=== PATIENT | male | born 1975 | race Caucasian/White ===

== ENCOUNTER 2018-02-24 19:02 | Inpatient (IN) | payer BC, OTHER ==
[2018-02-24 19:09] VITALS: BMI 24.3
--- NOTE | 2018-02-24 19:11 | PDOC ---
Rapid Medical Evaluation Time Seen by Provider: 02/24/18 19:05 Medical Evaluation: Allergies Allergy/AdvReac Type Severity Reaction Status Date / Time No Known Allergies Allergy Verified 02/24/18 19:05 02/24/18 19:06 Pt presents for admission for an MS flare for two weeks. States his knees are locking and he has numbness in the L side of his face. States he had dental surgery last week. Saw Dr. Hough today who would like the patient admitted for MRI and IV solumedrol Exam: AAOx3, no respiratory distress. Capped lower L tooth with possible pus? Orders: labs, EKG, urine Pt to proceed to ED for further evaluation Discharge Disposition - Diagnosis Numbness - Referrals - Patient Instructions - Post Discharge Activity
[2018-02-24 19:55] LABS: BASO % 0.8 % (0-2.0); EOS % 1.6 % (0-4.5); HEMATOCRIT 40.1 % (35.4-49); HEMOGLOBIN 13.5 GM/dL (11.7-16.9); LYMPH % 23.4 % (8-40); MCH 32.2 pg (25.7-33.7); MCHC 33.6 g/dl (32.0-35.9); MEAN CELL VOLUME 95.6 fl (80-96); MEAN PLT VOLUME 8.9 fl (7.5-11.1); MONO % 5.2 % (3.8-10.2); PLATELET COUNT 213 K/MM3 (134-434); RBC 4.19 M/mm3 (4.00-5.60); WHITE BLOOD COUNT 6.9 K/mm3 (4.0-10.0)
[2018-02-24 20:02] LABS: URINE APPEARANCE CLEAR; URINE BILIRUBIN NEGATIVE (<2.0 mg/dL); URINE COLOR YELLOW; URINE GLUCOSE (UA) NEGATIVE (NEGATIVE); URINE KETONE NEGATIVE (NEGATIVE); URINE LEUK ESTERASE NEGATIVE (NEGATIVE); URINE NITRITE NEGATIVE (NEGATIVE); URINE PROTEIN NEGATIVE (NEGATIVE)
[2018-02-24 20:16] LABS: ANION GAP 8 (8-16); BLOOD UREA NITROGEN 11 mg/dL (7-18); CALCIUM 9.1 mg/dL (8.5-10.1); CHLORIDE 107 mmol/L (98-107); CO2 28 mmol/L (21-32); GLUCOSE,RANDOM 85 mg/dL (74-106); POTASSIUM 3.7 mmol/L (3.5-5.1); SODIUM 143 mmol/L (136-145)
[2018-02-24 20:20] LABS: ALK PHOS 61 U/L (45-117); BILIRUBIN,TOTAL 0.5 mg/dL (0.2-1.0); CREATININE 0.9 mg/dL (0.7-1.3); SGOT/AST 24 U/L (15-37); SGPT/ALT 30 U/L (12-78); TOT PROT 6.8 g/dl (6.4-8.2)
--- NOTE | 2018-02-24 20:20 | PDOC ---
History of Present Illness - General Chief Complaint: Weakness Stated Complaint: PCP ADMIT Time Seen by Provider: 02/24/18 19:05 History Source: Patient - History of Present Illness Initial Comments: 02/24/18 20:15 42-year-old male with history of MS reports for greater than 1 week patient has been experiencing weakness, dysarthria, imbalance, with left-sided facial numbness. Patient reports that he has been off his MS medication for 5 years. Today was seen by Dr. Hough (neurology) who sent the patient for evaluation and admission for MS exacerbation. Patient reports that one week ago patient had left lower molar removed and cap was placed. Patient was put on amoxicillin and a mouthwash. Patient denies increased swelling to the left side of face, pus drainage, fever, chills. NIH Stroke Scale - Last Known Well Date/Time & Onset Date Last Known Well: 02/11/18 - Initial Evaluation Level of consciousness: Alert Ask patient the month and their age: Answers both correctly Ask patient to open & close eyes; make fist and let go: Obeys both correctly Best gaze (horizontal eye movement): Normal Visual field testing: No visual field loss Facial paresis (Show teeth/raise eyebrows/close eyes tight): Minor paralysis ( flattened nasolabial fold, asymmetry on smiling) (ower wrist) Motor Function: Left Arm: Normal Motor Function: Right Arm: Normal (extends arm 90 (or 45) degrees for 10 seconds without drift Motor Function: Left Leg: Normal (extends leg 30 degrees for 5 seconds without drift) Motor Function: Right Leg: Normal (extends leg 30 degrees for 5 seconds without drift) Limb Ataxia: No ataxia Sensory(Use pinprick test arms,legs,trunk,face/side to side): Mild to moderate decrease in sensation Best language (Describe picture, name items, read sentences): No Aphasia (30 this morn) Dysarthria (read several words): Mild to moderate slurring of words Extinction and Inattention: No abnormality (no past medic) - Total Score NIH Stroke Scale Score: 3 Past History - Past Medical History Allergies/Adverse Reactions: Allergies Allergy/AdvReac Type Severity Reaction Status Date / Time No Known Allergies Allergy Verified 02/24/18 19:05 COPD: No Other medical history: MULTIPLE SCLEROSIS - Suicide/Smoking/Psychosocial Hx Smoking History: Never smoked Review of Systems - Review of Systems Able to Perform ROS?: Yes Is the patient limited Sami proficient: No Constitutional: No: Symptoms Reported, See HPI, Chills, Diaphoresis, Fever, Loss of Appetite, Malaise, Night Sweats, Weakness, Weight Stable (he had 2 or), Unintentional Wgt. Loss, Unexplained wgt Loss, Other HEENTM: Yes: Dental Problems. No: Symptoms Reported, See HPI, Eye Pain, Blurred Vision, Tearing, Recent change in vision, Double Vision, Cataracts, Ear Pain, Ocular Prothesis, Ear Discharge, Nose Pain, Nose Congestion, Tinnitus, Nose Bleeding, Hearing Loss, Throat Pain, Throat Swelling, Mouth Pain, Difficulty Swallowing, Mouth Swelling, Other Neurological: Yes: Weakness, Unsteady Gait, Ataxia (() *Physical Exam - Vital Signs Last Vital Signs Temp Pulse Resp BP Pulse Ox 98.5 F 64 19 122/63 98 02/24/18 19:06 02/24/18 19:06 02/24/18 19:06 02/24/18 19:06 02/24/18 19:06 - Physical Exam General Appearance: Yes: Appropriately Dressed (ED) Respiratory/Chest: positive: Lungs Clear, Normal Breath Sounds Gastrointestinal/Abdominal: positive: Normal Bowel Sounds, Soft Musculoskeletal: positive: Normal Inspection Extremity: positive: Normal Capillary Refill, Normal Inspection, Normal Range of Motion Integumentary: positive: Normal Color, Dry, Warm Neurologic: positive: Alert, Normal Mood/Affect, Other (slight facial asymmetry) Heart Score/ECG Review - ECG Intrepretation Rhythm: Regular Rhythm Comment:: 02/24/18 20:31 NSR: 61 bpm ED Treatment Course - LABORATORY CBC & Chemistry Diagram: 02/25/18 09:20 02/25/18 09:20 - ADDITIONAL ORDERS Additional order review: 02/24/18 19:41 RBC 4.19 MCV 95.6 MCHC 33.6 RDW 13.0 MPV 8.9 Neutrophils % 69.0 Lymphocytes % 23.4 Monocytes % 5.2 Eosinophils % 1.6 Basophils % 0.8 - RADIOLOGY Radiology Studies Ordered: Category Date Time Status BRAIN MRI WITH CONTRAST [MRI] Stat MRI 02/24/18 20:11 Ordered CERVICAL SPINE MRI WITH CONTR [MRI] Stat MRI 02/24/18 20:11 Ordered Medical Decision Making - Medical Decision Making A: weakness; MS flare P: labs 02/24/18 20:18 Dr. Hough's recommendations includes inpatient admission, IV Solu-Medrol 250 mg IV every 6 hours 5 days. MRI brain and spine with gadolinium, labs including (vitamin D, ESR, B12, TSH, CMP, CBC, and NMO and J C virus titers) 02/24/18 20:31 02/24/18 21:55 patient signed out to Dr. castillo/ katie Rodriguez 02/27/18 06:43 *DC/Admit/Observation/Transfer Diagnosis at time of Disposition: Multiple sclerosis exacerbation - Discharge Dispostion Decision to Admit order: Yes - Referrals - Patient Instructions - Post Discharge Activity
--- NOTE | 2018-02-24 20:28 | PDOC ---
*Physical Exam - Vital Signs Last Vital Signs Temp Pulse Resp BP Pulse Ox 98.5 F 64 19 122/63 98 02/24/18 19:06 02/24/18 19:06 02/24/18 19:06 02/24/18 19:06 02/24/18 19:06 ED Treatment Course - LABORATORY CBC & Chemistry Diagram: 02/24/18 19:41 02/24/18 19:41 - ADDITIONAL ORDERS Additional order review: 02/24/18 19:41 RBC 4.19 MCV 95.6 MCHC 33.6 RDW 13.0 MPV 8.9 Neutrophils % 69.0 Lymphocytes % 23.4 Monocytes % 5.2 Eosinophils % 1.6 Basophils % 0.8 Medical Decision Making - Medical Decision Making 02/24/18 20:27 agree with care from [place] quinteros *DC/Admit/Observation/Transfer Diagnosis at time of Disposition: Numbness - Referrals - Patient Instructions - Post Discharge Activity
[2018-02-24 20:30] LABS: INR 1.12 (0.83-1.09); PROTHROMBIN TIME (PATIENT) 12.7 SEC (9.7-13.0)
[2018-02-24] MEDS ORDERED: methylPREDNISolone NA SUCC 125 MG/2 ML VIAL IVPB ONE (20:31)
[2018-02-24] MEDS ORDERED: methylPREDNISolone NA SUCC 125 MG/2 ML VIAL ONE (20:49)
--- NOTE | 2018-02-24 21:59 | PN ---
Teaching Attending Note Name of Resident: Vanesa King ATTENDING PHYSICIAN STATEMENT I saw and evaluated the patient. I reviewed the resident's note and discussed the case with the resident. I agree with the resident's findings and plan as documented. SUBJECTIVE: Patient is a 42 year old man with history of Multiple Sclerosis presents with 1 week history of weakness, dysarthria, imbalance, with left-sided facial numbness. Patient reports that he has been off his MS medication for 5 years. Today was seen by Dr. Hough (neurology) who sent the patient for evaluation and admission for MS exacerbation. Patient reports that one week ago patient had left lower molar removed and cap was placed. Patient was put on amoxicillin and a mouthwash. Patient denies increased swelling to the left side of face, pus drainage, fever, chills. OBJECTIVE: Alert and in no acute distress Vital Signs Period Temp Pulse Resp BP Sys/Banks Pulse Ox Last 24 Hr 98.5 F 64 19 122/63 98 HEENT: No Jaundice, eye redness or discharge, PERRLA, EOMI. Normocephalic, atraumatic. External ears are normal and hearing is grossly intact. No nasal discharge. Neck: Supple, nontender. No palpable adenopathy or thyromegaly. No JVD Chest: Good effort. Clear to auscultation and percussion. Heart: Regular. No S3, rub or murmur Abdomen: Not distended, soft, nontender and no HSM. No rebound or guarding. Normoactive bowel sounds. Ext: Peripheral pulses intact. No leg edema. Skin: Warm and dry. No petechiae, rash or ecchymosis. Neuro: Alert. Oriented x3. Dysarthria; left facial weakness. Sensation grossly intact in all four extremities and DTR are symmetric. Current Medications Generic Name Dose Route Start Last Admin Trade Name Freq PRN Reason Stop Dose Admin Methylprednisolone Sodium Succinate 250 mg 02/25/18 03:00 Solu-Medrol - IVPB 03/02/18 02:59 Q6H-IV RAKEL ASSESSMENT AND PLAN: 1. Multiple Sclerosis Flare up - Getting an MRI of the brain to see if there are new plaques and also on Solumedrol 250 mg iv Q 6 hours. Neurology consult. Implement fall precautions. EKG shows possible aflutter vs effect of artifacts - will repeat EKG. 2. DVT prophylaxis - Heparin 5000u sq tid. 3. Advance directives - Full code
--- NOTE | 2018-02-24 23:15 | HP ---
CHIEF COMPLAINT: Left-sided facial weakness PCP: HISTORY OF PRESENT ILLNESS: Patient is a 42 year old male with past medical history of Multiple Sclerosis, presented to the ED with a 1 week history of left-sided facial weakness and numbness, dysarthria and weakness of both knees. One week prior, patient had his left lower molar removed and cap was placed. He was given amoxicillin and mouthwash. At around the same time, he noted numbness around his mouth, followed by left-sided facial drooping and dysarthria. Patient also reports both knees "locking", making it difficult for him to walk with electric shock sensation going down his LE. He also noted photosensitivity of left eye. Patient was known to have previous episodes of MS exacerbation which would last about 1 week, and resolve spontaneously. He was on Avonex before but discontinued it 4 years ago. Patient denies swelling of the face, fever, chills, vision changes, pus in the surgical site. Denies chest pain, SOB, abdominal pain, diarrhea, constipation, dysuria. ER course was notable for: (1)IV solu-medrol 250mg once given. (2)Brain MRI w/ contrast (3)Cervical spine MRI w/contrast Recent Travel:denies recent travel PAST MEDICAL HISTORY: Multiple Sclerosis PAST SURGICAL HISTORY: Social History: Smoking:previous smoker Alcohol:occasional ETOH drinker Drugs: no illicit drug use Family History: Father - NC Mother - heart disease, kidney disease, arthritis, DM Allergies No Known Allergies Allergy (Verified 02/24/18 19:05) HOME MEDICATIONS: None REVIEW OF SYSTEMS CONSTITUTIONAL: Absent: fever, chills, diaphoresis, generalized weakness, malaise, loss of appetite, weight change HEENT: Absent: rhinorrhea, nasal congestion, throat pain, throat swelling, difficulty swallowing, mouth swelling, ear pain, eye pain, visual changes CARDIOVASCULAR: Absent: chest pain, syncope, palpitations, irregular heart rate, lightheadedness , peripheral edema RESPIRATORY: Absent: cough, shortness of breath, dyspnea with exertion, orthopnea, wheezing, stridor, hemoptysis GASTROINTESTINAL: Absent: abdominal pain, abdominal distension, nausea, vomiting, diarrhea, constipation, melena, hematochezia GENITOURINARY: Absent: dysuria, frequency, urgency, hesitancy, hematuria, flank pain, genital pain MUSCULOSKELETAL: Absent: myalgia, arthralgia, joint swelling, back pain, neck pain SKIN: Absent: rash, itching, pallor HEMATOLOGIC/IMMUNOLOGIC: Absent: easy bleeding, easy bruising, lymphadenopathy, frequent infections ENDOCRINE: Absent: unexplained weight gain, unexplained weight loss, heat intolerance, cold intolerance NEUROLOGIC: +left-sided facial weakness and numbness Absent: headache, dizziness, seizure, mental status changes, bladder or bowel incontinence PSYCHIATRIC: Absent: anxiety, depression, suicidal or homicidal ideation, hallucinations. PHYSICAL EXAMINATION Vital Signs - 24 hr 02/24/18 19:06 Temperature 98.5 F Pulse Rate 64 Respiratory 19 Rate Blood Pressure 122/63 O2 Sat by Pulse 98 Oximetry (%) GENERAL: Awake, alert, and fully oriented, in no acute distress. HEAD: Normal with no signs of trauma. EYES: Pupils equal, round and reactive to light, extraocular movements intact, sclera anicteric, conjunctiva clear. No lid lag. EARS, NOSE, THROAT: Ears normal, nares patent, oropharynx clear without exudates. Moist mucous membranes. NECK: Normal range of motion, supple without lymphadenopathy, JVD, or masses. LUNGS: Breath sounds equal, clear to auscultation bilaterally. No wheezes, and no crackles. No accessory muscle use. HEART: Regular rate and rhythm, normal S1 and S2 without murmur, rub or gallop. ABDOMEN: Soft, nontender, not distended, normoactive bowel sounds, no guarding, no rebound, no masses. No hepatomegaly or splenomegaly. MUSCULOSKELETAL: Normal range of motion at all joints. No bony deformities or tenderness. No CVA tenderness. UPPER EXTREMITIES: 2+ pulses, warm, well-perfused. No cyanosis. No clubbing. No peripheral edema. LOWER EXTREMITIES: 2+ pulses, warm, well-perfused. No calf tenderness. No peripheral edema. NEUROLOGICAL: Alert, oriented x3, normal horizontal gaze, no visual field loss, (+)facial paresis,left, no aphasia, mild slurring of words, reflexes+2, sensation intact, motor 5/5, (-)dysmetria, (-)dysdiadochokinesia, (-)Romberg's. PSYCHIATRIC: Cooperative. Good eye contact. Appropriate mood and affect. SKIN: Warm, dry, normal turgor, no rashes or lesions noted, normal capillary refill. Laboratory Results - last 24 hr 0702/24/18 02/24/18 19:41 19:41 19:41 WBC 6.9 RBC 4.19 Hgb 13.5 Hct 40.1 MCV 95.6 MCH 32.2 MCHC 33.6 RDW 13.0 Plt Count 213 MPV 8.9 Absolute Neuts (auto) 4.7 Neutrophils % 69.0 Lymphocytes % 23.4 Monocytes % 5.2 Eosinophils % 1.6 Basophils % 0.8 Nucleated RBC % 0 ESR PT with INR 12.70 INR 1.12 Sodium Potassium Chloride Carbon Dioxide Anion Gap BUN Creatinine Creat Clearance w eGFR Random Glucose Calcium Total Bilirubin AST ALT Alkaline Phosphatase Total Protein Albumin Vitamin B12 Urine Color Yellow Urine Appearance Clear Urine pH 6.0 Ur Specific [place] 1.017 Urine Protein Negative Urine Glucose (UA) Negative Urine Ketones Negative Urine Blood Negative Urine Nitrite Negative Urine Bilirubin Negative Urine Urobilinogen 2.0 Ur Leukocyte Esterase Negative 02/24/18 02/24/18 02/24/18 19:41 20:33 20:33 WBC RBC Hgb Hct MCV MCH MCHC RDW Plt Count MPV Absolute Neuts (auto) Neutrophils % Lymphocytes % Monocytes % Eosinophils % Basophils % Nucleated RBC % ESR 5 PT with INR INR Sodium 143 Potassium 3.7 Chloride 107 Carbon Dioxide 28 Anion Gap 8 BUN 11 Creatinine 0.9 Creat Clearance w eGFR > 60 Random Glucose 85 Calcium 9.1 Total Bilirubin 0.5 AST 24 D ALT 30 D Alkaline Phosphatase 61 Total Protein 6.8 Albumin 4.0 Vitamin B12 336 Urine Color Urine Appearance Urine pH Ur Specific [place] Urine Protein Urine Glucose (UA) Urine Ketones Urine Blood Urine Nitrite Urine Bilirubin Urine Urobilinogen Ur Leukocyte Esterase CBC, BMP 02/24/18 19:41 02/24/18 19:41 ASSESSMENT/PLAN: Patient is a 42 year old male with past medical history of Multiple Sclerosis, presented to the ED with a 1 week history of left-sided facial weakness and numbness, dysarthria and weakness of both knees. #Multiple sclerosis in exacerbation: Previous MS flares resolved spontaneously. -Brain MRI with contrast. -Cervical spine MRI with contrast. -IV solu-medrol 250mg q6h for 5 days. -Dr. Hough consult appreciated. -Urine cultures done. -Neuromyelitis optica AB, SREEDHAR virus titers. -Vit D, ESR, Vit B12, TSH, CMP, CBC, NMO ordered. #FEN -not on any standing fluids. -Encourage to increase oral fluid intake. -Electrolytes WNL. -regular diet. #Prophylaxis -Heparin 5000 units BID. #Disposition -admit to med-surg -full code Visit type - Emergency Visit Emergency Visit: Yes ED Registration Date: 02/24/18 Care time: The patient presented to the Emergency Department on the above date and was hospitalized for further evaluation of their emergent condition. - New Patient This patient is new to me today: Yes Date on this admission: 02/25/18 - Critical Care Critical Care patient: No Hospitalist Screening - Colonoscopy Questionnaire Colonoscopy Questionnaire: Colonoscopy Questionnaire - Patient: 50 - 75 years old and never had a screening colonoscopy: Unknown History of colon or rectal polyps, or CA: Unknown History of IBD, Crohn's disease or UC: Unknown History of abdominal radiation therapy as a child: Unknown - Relative: 1 with colon or rectal CA, or polyps at age 60 or younger: Unknown Colon or rectal CA diagnosed at age 45 or younger: Unknown Multiple relatives with colon or rectal CA: Unknown - Outcome: Screening Result: Negative Screen
[2018-02-25] MEDS: methylPREDNISolone NA SUCC 125 MG/2 ML VIAL IVPB SCH ×4 (03:04→21:28)
[2018-02-25] MEDS: HEPARIN NA (PORCINE) 5,000 UNITS/ML 1ML VIAL SQ SCH ×2 (09:30→21:31)
[2018-02-25 09:37] LABS: HEMATOCRIT 42.9 % (35.4-49); HEMOGLOBIN 14.5 GM/dL (11.7-16.9); MCH 32.1 pg (25.7-33.7); MCHC 33.7 g/dl (32.0-35.9); MEAN CELL VOLUME 95.4 fl (80-96); MEAN PLT VOLUME 8.7 fl (7.5-11.1); PLATELET COUNT 205 K/MM3 (134-434); RDW 13.1 % (11.9-15.9); WHITE BLOOD COUNT 13.3 K/mm3 (4.0-10.0)
--- NOTE | 2018-02-25 09:56 | CON.NEURO ---
Consult - History of Present Illness History of Present Illness: 42 year old male with past medical history of Multiple Sclerosis, known to me, presented to the ED with a 1 week history of left-sided facial weakness and numbness, dysarthria and weakness of both knees. Patient was known to have previous episodes of MS exacerbation which would last about 1 week, and resolve spontaneously. He was on Avonex before but self discontinued it 4 years ago. He was lost to follow up until seen by me in office yesterday adn admitted for presumptive MS excacerbation. MRI C SPINE C5-C6. Broad-based disc extrusion with mild cephalad extension of the disc material in relation to C5-C6 disc space. The disc effaces the ventral subarachnoid space. Effaced dorsal subarachnoid space. Central spinal canal stenosis is noted. The greatest posterior tension of the disc gabriele. 2 mm. C6-C7. Broad based extruded disc with mild cephalad extension of the disc material in relation to the C6-C7 disc space. Central spinal canal stenosis. Effaced ventral , dorsal subarachnoid spaces. The greatest posterior extension of the disc gabriele. 3 mm. Normal signal intensity of the spinal cord. No evidence of intramedullary , epidural pathological process. TO MY EYE, abnl signal cervicomedullary junction as well. MRI BRAIN Impression. Approximately 14 mm x 12 mm x 13 mm T2 FLAIR/T2 hyperintense lesion is noted in the left later mid carli/lower carli in the close proximity to the left middle cerebellar peduncle with peripheral ring enhancement - active demyelinating MS plaque. Multiple nonenhanced demyelinating supratentorial white matter lesions of the type seen in multiple sclerosis. - Past Surgical History Past Surgical History: Yes: None - Alcohol/Substance Use Hx Alcohol Use: No History of Substance Use: reports: None - Smoking History Smoking history: Never smoked Have you smoked in the past 12 months: No Home Medications - Allergies Allergies/Adverse Reactions: Allergies Allergy/AdvReac Type Severity Reaction Status Date / Time No Known Allergies Allergy Verified 02/24/18 19:05 Physical Exam-Neuro Vital Signs: Vital Signs Temperature 97.6 F 02/25/18 06:00 Pulse Rate 57 L 02/25/18 06:00 Respiratory Rate 18 02/25/18 06:00 Blood Pressure 111/60 02/25/18 06:00 O2 Sat by Pulse Oximetry (%) 98 02/24/18 21:00 Constitutional: Yes: Well Nourished, No Distress Labs: CBC, BMP 02/25/18 09:20 INR, PTT INR 1.12 (0.83-1.09) 02/24/18 19:41 - Neuro Exam Level Of Consciousness: Yes: Alert (awake, alert, EOMI, R facial, dysarthria, no focal weakness, reflexes brisk ) Problem List - Problems (1) Multiple sclerosis exacerbation Code(s): G35 - MULTIPLE SCLEROSIS Assessment/Plan 42 year old male with past medical history of Multiple Sclerosis, known to me, presented to the ED with a 1 week history of left-sided facial weakness and numbness, dysarthria and weakness of both knees. Patient was known to have previous episodes of MS exacerbation which would last about 1 week, and resolve spontaneously. He was on Avonex before but self discontinued it 4 years ago. He was lost to follow up until seen by me in office yesterday adn admitted for presumptive MS excacerbation. ACTIVE pontine plaque Admitted for 5 days IV SOLUMEDROL, 250IV 6 x 5 days rehab PRN will discuss immunomodulators outpt DR RAO [phone]
[2018-02-25 10:04] LABS: ANION GAP 10 (8-16); BLOOD UREA NITROGEN 15 mg/dL (7-18); CALCIUM 9.3 mg/dL (8.5-10.1); CHLORIDE 107 mmol/L (98-107); CO2 23 mmol/L (21-32); GLUCOSE,RANDOM 155 mg/dL (74-106); MAGNESIUM 1.8 mg/dL (1.8-2.4); PHOSPHOROUS 3.6 mg/dL (2.5-4.9); POTASSIUM 4.1 mmol/L (3.5-5.1); SODIUM 140 mmol/L (136-145)
--- NOTE | 2018-02-25 11:19 | EKG ---
Test Reason : Blood Pressure : / mmHG Vent. Rate : 061 BPM Atrial Rate : 061 BPM P-R Int : 130 ms QRS Dur : 094 ms QT Int : 386 ms P-R-T Axes : 039 062 058 degrees QTc Int : 388 ms NORMAL SINUS RHYTHM NONSPECIFIC ST ABNORMALITY ABNORMAL ECG NO PREVIOUS ECGS AVAILABLE Confirmed by RADHA DELONG MD ([id number]) on 02/25/2018 11:19:10 AM Referred By: Confirmed By:RADHA DELONG MD
--- NOTE | 2018-02-25 15:46 | PN ---
Teaching Attending Note Name of Resident: Enid Begum ATTENDING PHYSICIAN STATEMENT I saw and evaluated the patient. I reviewed the resident's note and discussed the case with the resident. I agree with the resident's findings and plan as documented with exceptions below. SUBJECTIVE: Patient seen and examined. Ambulating in hallway, feels better. Still with left facial numbness and facial asymmetry. Still unsteady with positional changes but better. OBJECTIVE: Vital Signs Period Temp Pulse Resp BP Sys/Banks Pulse Ox Last 24 Hr 97.6 F-98.5 F 54-64 18-19 111-132/50-73 98-98 Intake & Output 02/22/18 02/23/18 02/24/18 02/25/18 23:59 23:59 23:59 23:59 Intake Total 100 Balance 100 Weight 169 lb 3.2 oz General: ambulating in hallway, no acute distress Neuro AAOx3, right facial nasolabial flattening, dysarthria, left facial numbness Active Medications Heparin Sodium (Porcine) (Heparin -) 5,000 unit SQ BID RAKEL Last Admin: 02/25/18 09:30 Dose: Not Given Methylprednisolone Sodium Succinate (Solu-Medrol -) 250 mg IVPB Q6H-IV RAKEL Stop: 03/02/18 02:59 Last Admin: 02/25/18 14:59 Dose: 250 mg Laboratory Results - last 24 hr 02/24/18 02/24/18 02/24/18 19:41 19:41 19:41 WBC 6.9 RBC 4.19 Hgb 13.5 Hct 40.1 MCV 95.6 MCH 32.2 MCHC 33.6 RDW 13.0 Plt Count 213 MPV 8.9 Absolute Neuts (auto) 4.7 Neutrophils % 69.0 Lymphocytes % 23.4 Monocytes % 5.2 Eosinophils % 1.6 Basophils % 0.8 Nucleated RBC % 0 ESR PT with INR 12.70 INR 1.12 Sodium Potassium Chloride Carbon Dioxide Anion Gap BUN Creatinine Creat Clearance w eGFR Random Glucose Calcium Phosphorus Magnesium Total Bilirubin AST ALT Alkaline Phosphatase Total Protein Albumin Vitamin B12 Urine Color Yellow Urine Appearance Clear Urine pH 6.0 Ur Specific [place] 1.017 Urine Protein Negative Urine Glucose (UA) Negative Urine Ketones Negative Urine Blood Negative Urine Nitrite Negative Urine Bilirubin Negative Urine Urobilinogen 2.0 Ur Leukocyte Esterase Negative 02/24/18 02/24/1818 19:41 20:33 20:33 WBC RBC Hgb Hct MCV MCH MCHC RDW Plt Count MPV Absolute Neuts (auto) Neutrophils % Lymphocytes % Monocytes % Eosinophils % Basophils % Nucleated RBC % ESR 5 PT with INR INR Sodium 143 Potassium 3.7 Chloride 107 Carbon Dioxide 28 Anion Gap 8 BUN 11 Creatinine 0.9 Creat Clearance w eGFR > 60 Random Glucose 85 Calcium 9.1 Phosphorus Magnesium Total Bilirubin 0.5 AST 24 D ALT 30 D Alkaline Phosphatase 61 Total Protein 6.8 Albumin 4.0 Vitamin B12 336 Urine Color Urine Appearance Urine pH Ur Specific [place] Urine Protein Urine Glucose (UA) Urine Ketones Urine Blood Urine Nitrite Urine Bilirubin Urine Urobilinogen Ur Leukocyte Esterase 02/25/18 02/25/18 09:20 09:20 WBC 13.3 H RBC 4.50 Hgb 14.5 Hct 42.9 MCV 95.4 MCH 32.1 MCHC 33.7 RDW 13.1 Plt Count 205 MPV 8.7 Absolute Neuts (auto) Neutrophils % Lymphocytes % Monocytes % Eosinophils % Basophils % Nucleated RBC % ESR PT with INR INR Sodium 140 Potassium 4.1 Chloride 107 Carbon Dioxide 23 Anion Gap 10 BUN 15 Creatinine 1.0 Creat Clearance w eGFR > 60 Random Glucose 155 H D Calcium 9.3 Phosphorus 3.6 Magnesium 1.8 Total Bilirubin AST ALT Alkaline Phosphatase Total Protein Albumin Vitamin B12 Urine Color Urine Appearance Urine pH Ur Specific [place] Urine Protein Urine Glucose (UA) Urine Ketones Urine Blood Urine Nitrite Urine Bilirubin Urine Urobilinogen Ur Leukocyte Esterase MRI brain results reviewed ASSESSMENT AND PLAN: 42 yom with Multiple sclerosis, on avenox before, self discontinued 4 years ago, admitted with 1 week of facial droop, dysarthria, left facial numbness and gait instability -Acute Multiple Sclerosis Flare Plan: Neurology input noted. MRI results reviewed. 5 days of IV solumedrol, outpatient follow up PT eval based on needs and clinical improvement. Plan discussed with patient in detail, all questions answered.
--- NOTE | 2018-02-25 22:45 | PN ---
Physical Exam: SUBJECTIVE: Patient seen and examined this morning at bedside. Continues to feel his speech is slurred and left eye blurriness however overall improved. Denies fevers, chills, chest pain, SOB, nausea, vomiting. No Acute overnight events as per nursing. OBJECTIVE: Vital Signs Period Temp Pulse Resp BP Sys/Banks Pulse Ox Last 24 Hr 97.6 F-98.1 F 54-65 18-18 111-137/50-73 99 GENERAL: The patient is awake, alert, and fully oriented, in no acute distress. EYES: PERRLA, EOMI, No ptosis THROAT: Oropharynx clear without exudates, moist mucous membranes. LUNGS: Breath sounds equal, clear to auscultation bilaterally, no wheezes, no crackles, no accessory muscle use. HEART: Regular rate and rhythm, S1, S2 without murmur, rub or gallop. ABDOMEN: Soft, nontender, nondistended, normoactive bowel sounds, no guarding, no rebound EXTREMITIES: 2+ pulses, no edema. NEUROLOGICAL: Cranial nerves II-IV, -XII grossly intact, Diminished Left CN V. Slurred speech, Gait normal however patient complains of slight unsteadiness , C5-T1 and L4-S1 gross sensation intact, Upper and Lower extremity muscle strength 5/5 PSYCH: Normal mood, normal affect Laboratory Results - last 24 hr 02/25/18 02/25/18 09:20 09:20 WBC 13.3 H RBC 4.50 Hgb 14.5 Hct 42.9 MCV 95.4 MCH 32.1 MCHC 33.7 RDW 13.1 Plt Count 205 MPV 8.7 Sodium 140 Potassium 4.1 Chloride 107 Carbon Dioxide 23 Anion Gap 10 BUN 15 Creatinine 1.0 Creat Clearance w eGFR > 60 Random Glucose 155 H D Calcium 9.3 Phosphorus 3.6 Magnesium 1.8 Active Medications Heparin Sodium (Porcine) (Heparin -) 5,000 unit SQ BID [facility] Last Admin: 02/25/18 21:31 Dose: Not Given Methylprednisolone Sodium Succinate (Solu-Medrol -) 250 mg IVPB Q6H-IV [facility] Stop: 03/02/18 02:59 Last Admin: 02/26/18 02:52 Dose: 250 mg IMAGING: - Brain MRI: Approximately 14 mm x 12 mm x 13 mm T2 FLAIR/T2 hyperintense lesion is noted in the left later mid carli/lower carli in the close proximity to the left middle cerebellar peduncle with peripheral ring enhancement - active demyelinating MS plaque. Multiple nonenhanced demyelinating supratentorial white matter lesions of the type seen in multiple sclerosis. - C-Spine MRI: C5-C6. Broad-based disc extrusion with mild cephalad extension of the disc material in relation to C5-C6 disc space. The disc effaces the ventral subarachnoid space. Effaced dorsal subarachnoid space. Central spinal canal stenosis is noted. The greatest posterior tension of the disc gabriele. 2 mm. C6-C7. Broad based extruded disc with mild cephalad extension of the disc material in relation to the C6-C7 disc space. Central spinal canal stenosis. Effaced ventral, dorsal subarachnoid spaces. The greatest posterior extension of the disc gabriele. 3 mm. Normal signal intensity of the spinal cord. No evidence of intramedullary, epidural pathological process. ASSESSMENT/PLAN: 42 y/o male with PMHx of Multiple Sclerosis, presented to the ED with a 1 week hx of left-sided facial weakness and numbness, dysarthria and weakness of both knees. 1. Multiple sclerosis flare - Previous MS flares resolved spontaneously. - Brain MRI: 14 mm x 12 mm x 13 mm T2 FLAIR/T2 hyperintense lesion is noted in the left later mid carli/lower carli in the close proximity to the left middle cerebellar peduncle with peripheral ring enhancement - active demyelinating MS plaque. - Cervical spine MRI with contrast Noted above - IV solumedrol 250mg Q6H x 5 days - Neurology (Dr. Hough) consulted, appreciate recs, f/u outpatient to discuss immunomodulators - PT Eval 2. FEN - PO Fluids - Lytes WNL - Regular diet 3. PPx - DVT: Heparin 5000U BID. Dispo: D/C after completion of IV Solumederol for 5 days and clinical improvement Visit type - Emergency Visit Emergency Visit: Yes ED Registration Date: 02/24/18 Care time: The patient presented to the Emergency Department on the above date and was hospitalized for further evaluation of their emergent condition. - New Patient This patient is new to me today: Yes Date on this admission: 02/26/18 - Critical Care Critical Care patient: No
[2018-02-26] MEDS: methylPREDNISolone NA SUCC 125 MG/2 ML VIAL IVPB SCH ×4 (02:52→21:05)
--- NOTE | 2018-02-26 08:37 | PN ---
Teaching Attending Note Name of Resident: Enid Begum ATTENDING PHYSICIAN STATEMENT I saw and evaluated the patient. I reviewed the resident's note and discussed the case with the resident. I agree with the resident's findings and plan as documented with exceptions below. SUBJECTIVE: Patient seen and examined. improving, no new concerns. OBJECTIVE: Vital Signs Period Temp Pulse Resp BP Sys/Banks Pulse Ox Last 24 Hr 97.7 F-98.1 F 54-65 18-18 114-137/47-76 99-100 Intake & Output 02/23/18 02/24/18 02/25/18 02/26/18 23:59 23:59 23:59 23:59 Intake Total 900 200 Balance 900 200 Weight 169 lb 3.2 oz General: lying in bed in no acute distress Neuro: right facial droop, left facial numbness, power 5/5, gait deferred currently Active Medications Heparin Sodium (Porcine) (Heparin -) 5,000 unit SQ BID [facility] Last Admin: 02/25/18 21:31 Dose: Not Given Methylprednisolone Sodium Succinate (Solu-Medrol -) 250 mg IVPB Q6H-IV [facility] Stop: 03/02/18 02:59 Last Admin: 02/26/18 02:52 Dose: 250 mg ASSESSMENT AND PLAN: 42 yom with Multiple sclerosis, on avenox before, self discontinued 4 years ago, admitted with 1 week of facial droop, dysarthria, left facial numbness and gait instability -Acute Multiple Sclerosis Flare Plan: Neurology input noted. MRI results reviewed. 5 days of IV solumedrol, outpatient follow up PT eval based on needs and clinical improvement. Plan discussed with patient in detail, all questions answered.
--- NOTE | 2018-02-26 09:21 | PN ---
Progress Note (short form) - Note Progress Note: 42 year old male with past medical history of Multiple Sclerosis, known to me, presented to the ED with a 1 week history of left-sided facial weakness and numbness, dysarthria and weakness of both knees. Patient was known to have previous episodes of MS exacerbation which would last about 1 week, and resolve spontaneously. He was on Avonex before but self discontinued it 4 years ago. He was lost to follow up until seen by me in office yesterday adn admitted for presumptive MS excacerbation. MRI C SPINE C5-C6. Broad-based disc extrusion with mild cephalad extension of the disc material in relation to C5-C6 disc space. The disc effaces the ventral subarachnoid space. Effaced dorsal subarachnoid space. Central spinal canal stenosis is noted. The greatest posterior tension of the disc gabriele. 2 mm. C6-C7. Broad based extruded disc with mild cephalad extension of the disc material in relation to the C6-C7 disc space. Central spinal canal stenosis. Effaced ventral , dorsal subarachnoid spaces. The greatest posterior extension of the disc gabriele. 3 mm. Normal signal intensity of the spinal cord. No evidence of intramedullary , epidural pathological process. TO MY EYE, abnl signal cervicomedullary junction as well. MRI BRAIN Impression. Approximately 14 mm x 12 mm x 13 mm T2 FLAIR/T2 hyperintense lesion is noted in the left later mid carli/lower carli in the close proximity to the left middle cerebellar peduncle with peripheral ring enhancement - active demyelinating MS plaque. Multiple nonenhanced demyelinating supratentorial white matter lesions of the type seen in multiple sclerosis. FU : doing well on steroids thus far no issues - Past Surgical History Past Surgical History: Yes: None - Alcohol/Substance Use Hx Alcohol Use: No History of Substance Use: reports: None - Smoking History Smoking history: Never smoked Have you smoked in the past 12 months: No Home Medications - Allergies Allergies/Adverse Reactions: Allergies Allergy/AdvReac Type Severity Reaction Status Date / Time No Known Allergies Allergy Verified 02/24/18 19:05 Physical Exam-Neuro Vital Signs: Vital Signs Temperature 97.7 F 02/26/18 07:00 Pulse Rate 61 02/26/18 07:00 Respiratory Rate 18 02/26/18 07:00 Blood Pressure 132/76 02/26/18 07:00 O2 Sat by Pulse Oximetry (%) 100 02/25/18 21:00 Constitutional: Yes: Well Nourished, No Distress Labs: CBCD WBC 13.3 K/mm3 (4.0-10.0) H 02/25/18 09:20 RBC 4.50 M/mm3 (4.00-5.60) 02/25/18 09:20 Hgb 14.5 GM/dL (11.7-16.9) 02/25/18 09:20 Hct 42.9 % (35.4-49) 02/25/18 09:20 MCV 95.4 fl (80-96) 02/25/18 09:20 MCHC 33.7 g/dl (32.0-35.9) 02/25/18 09:20 RDW 13.1 % (11.9-15.9) 02/25/18 09:20 Plt Count 205 K/MM3 (134-434) 02/25/18 09:20 MPV 8.7 fl (7.5-11.1) 02/25/18 09:20 CMP Sodium 140 mmol/L (136-145) 02/25/18 09:20 Potassium 4.1 mmol/L (3.5-5.1) 02/25/18 09:20 Chloride 107 mmol/L (98-107) 02/25/18 09:20 Carbon Dioxide 23 mmol/L (21-32) 02/25/18 09:20 Anion Gap 10 (8-16) 02/25/18 09:20 BUN 15 mg/dL (7-18) 02/25/18 09:20 Creatinine 1.0 mg/dL (0.7-1.3) 02/25/18 09:20 Creat Clearance w eGFR > 60 (>60) 02/25/18 09:20 Calcium 9.3 mg/dL (8.5-10.1) 02/25/18 09:20 Total Bilirubin 0.5 mg/dL (0.2-1.0) 02/24/18 19:41 AST 24 U/L (15-37) D 02/24/18 19:41 ALT 30 U/L (12-78) D 02/24/18 19:41 Alkaline Phosphatase 61 U/L (45-117) 02/24/18 19:41 Total Protein 6.8 g/dl (6.4-8.2) 02/24/18 19:41 Albumin 4.0 g/dl (3.4-5.0) 02/24/18 19:41 - Neuro Exam Level Of Consciousness: Yes: Alert (awake, alert, EOMI, R facial, dysarthria, no focal weakness, reflexes brisk ) Problem List - Problems (1) Multiple sclerosis exacerbation Code(s): G35 - MULTIPLE SCLEROSIS Assessment/Plan 42 year old male with past medical history of Multiple Sclerosis, known to me, presented to the ED with a 1 week history of left-sided facial weakness and numbness, dysarthria and weakness of both knees. Patient was known to have previous episodes of MS exacerbation which would last about 1 week, and resolve spontaneously. He was on Avonex before but self discontinued it 4 years ago. He was lost to follow up until seen by me in office yesterday adn admitted for presumptive MS excacerbation. ACTIVE pontine plaque Admitted for 3/5 days IV SOLUMEDROL, rehab PRN discussed outpt RX including TECFIDERA VS AUBAGIO options -pt will review and decide in coming weeks DR RAO Problem List - Problems (1) Multiple sclerosis exacerbation Code(s): G35 - MULTIPLE SCLEROSIS
[2018-02-26] MEDS: HEPARIN NA (PORCINE) 5,000 UNITS/ML 1ML VIAL SQ SCH ×2 (09:35→21:14)
--- NOTE | 2018-02-26 21:42 | PN ---
Physical Exam: SUBJECTIVE: Patient seen and examined this morning at bedside. Overall condition is improving, left eye blurriness has decreased. Gait unsteadiness also improved. Denies fevers, chills, chest pain, SOB, nausea, vomiting. No Acute overnight events as per nursing. OBJECTIVE: Vital Signs Period Temp Pulse Resp BP Sys/Banks Pulse Ox Last 24 Hr 97.7 F-98.3 F 59-72 18-20 114-138/47-86 100 GENERAL: The patient is awake, alert, and fully oriented, in no acute distress. EYES: PERRLA, EOMI, No ptosis b/l THROAT: Oropharynx clear without exudates, moist mucous membranes, no deviation of tongue or uvula. LUNGS: Breath sounds equal, clear to auscultation bilaterally, no wheezes HEART: Regular rate and rhythm, S1, S2 ABDOMEN: Soft, nontender, nondistended, normoactive bowel sounds, no guarding, no rebound EXTREMITIES: 2+ pulses, no edema. NEUROLOGICAL: Cranial nerves II-IV, -XII grossly intact, Diminished Left CN V. Slurred speech, Gait normal, C5-T1 and L4-S1 gross sensation intact, Upper and Lower extremity muscle strength 5/5 PSYCH: Normal mood, normal affect Laboratory Results - last 24 hr 02/24/18 20:33 Vitamin D 25-Hydroxy 30.4 Active Medications Heparin Sodium (Porcine) (Heparin -) 5,000 unit SQ BID [facility] Last Admin: 02/26/18 21:14 Dose: Not Given Methylprednisolone Sodium Succinate (Solu-Medrol -) 250 mg IVPB Q6H-IV [facility] Stop: 03/02/18 02:59 Last Admin: 02/26/18 21:05 Dose: 250 mg IMAGING: - Brain MRI: Approximately 14 mm x 12 mm x 13 mm T2 FLAIR/T2 hyperintense lesion is noted in the left later mid carli/lower carli in the close proximity to the left middle cerebellar peduncle with peripheral ring enhancement - active demyelinating MS plaque. Multiple nonenhanced demyelinating supratentorial white matter lesions of the type seen in multiple sclerosis. - C-Spine MRI: C5-C6. Broad-based disc extrusion with mild cephalad extension of the disc material in relation to C5-C6 disc space. The disc effaces the ventral subarachnoid space. Effaced dorsal subarachnoid space. Central spinal canal stenosis is noted. The greatest posterior tension of the disc gabriele. 2 mm. C6-C7. Broad based extruded disc with mild cephalad extension of the disc material in relation to the C6-C7 disc space. Central spinal canal stenosis. Effaced ventral, dorsal subarachnoid spaces. The greatest posterior extension of the disc gabriele. 3 mm. Normal signal intensity of the spinal cord. No evidence of intramedullary, epidural pathological process. ASSESSMENT/PLAN: 42 y/o male with PMHx of Multiple Sclerosis, presented to the ED with a 1 week hx of left-sided facial weakness and numbness, dysarthria and weakness of both knees. 1. Multiple sclerosis flare - Previous MS flares resolved spontaneously. - Brain MRI: 14 mm x 12 mm x 13 mm T2 FLAIR/T2 hyperintense lesion is noted in the left later mid carli/lower carli in the close proximity to the left middle cerebellar peduncle with peripheral ring enhancement - active demyelinating MS plaque. - Cervical spine MRI with contrast Noted above - IV solumedrol 250mg Q6H x 5 days - Neurology (Dr. Hough) consulted, appreciate recs, f/u outpatient to discuss immunomodulators - PT Eval 2. FEN - PO Fluids - Lytes WNL - Regular diet 3. PPx - DVT: Heparin 5000U BID. Dispo: D/C after completion of IV Solumederol for 5 days and clinical improvement Visit type - Emergency Visit Emergency Visit: Yes ED Registration Date: 02/24/18 Care time: The patient presented to the Emergency Department on the above date and was hospitalized for further evaluation of their emergent condition. - New Patient This patient is new to me today: No - Critical Care Critical Care patient: No
[2018-02-27] MEDS: methylPREDNISolone NA SUCC 125 MG/2 ML VIAL IVPB SCH ×4 (02:58→20:44)
[2018-02-27] MEDS: HEPARIN NA (PORCINE) 5,000 UNITS/ML 1ML VIAL SQ SCH ×2 (09:14→21:41)
[2018-02-27 14:16] LABS: NMO-NEUROMYELITIS OPTICA Ab < 2 U/mL (0.0-3.0)
--- NOTE | 2018-02-27 15:32 | PN ---
Physical Exam: SUBJECTIVE: Patient seen and examined this morning at bedside. Overall condition is improving, Denies fevers, chills, chest pain, SOB, nausea, vomiting. No Acute overnight events as per nursing. OBJECTIVE: Vital Signs Period Temp Pulse Resp BP Sys/Banks Pulse Ox Last 24 Hr 97.9 F-98.6 F 51-63 18-20 107-126/58-70 98-98 GENERAL: The patient is awake, alert, and fully oriented, in no acute distress. EYES: PERRLA, EOMI, No ptosis b/l THROAT: Oropharynx clear without exudates, moist mucous membranes, no deviation of tongue or uvula. LUNGS: Breath sounds equal, clear to auscultation bilaterally, no wheezes HEART: Regular rate and rhythm, S1, S2 ABDOMEN: Soft, nontender, nondistended, normoactive bowel sounds EXTREMITIES: 2+ pulses, no edema NEUROLOGICAL: Cranial nerves II-IV, -XII grossly intact, Diminished Left CN V. Slurred speech, Gait normal, C5-T1 and L4-S1 gross sensation intact, Upper and Lower extremity muscle strength 5/5 PSYCH: Normal mood, normal affect Laboratory Results - last 24 hr 02/24/18 02/24/18 20:33 20:33 Neuromyelitis Optica Ab < 2 SREEDHAR Virus DNA (PCR) Negative Active Medications Heparin Sodium (Porcine) (Heparin -) 5,000 unit SQ BID [facility] Last Admin: 02/27/18 09:14 Dose: Not Given Methylprednisolone Sodium Succinate (Solu-Medrol -) 250 mg IVPB Q6H-IV [facility] Stop: 03/02/18 02:59 Last Admin: 02/27/18 14:32 Dose: 250 mg IMAGING: - Brain MRI: Approximately 14 mm x 12 mm x 13 mm T2 FLAIR/T2 hyperintense lesion is noted in the left later mid carli/lower carli in the close proximity to the left middle cerebellar peduncle with peripheral ring enhancement - active demyelinating MS plaque. Multiple nonenhanced demyelinating supratentorial white matter lesions of the type seen in multiple sclerosis. - C-Spine MRI: C5-C6. Broad-based disc extrusion with mild cephalad extension of the disc material in relation to C5-C6 disc space. The disc effaces the ventral subarachnoid space. Effaced dorsal subarachnoid space. Central spinal canal stenosis is noted. The greatest posterior tension of the disc gabriele. 2 mm. C6-C7. Broad based extruded disc with mild cephalad extension of the disc material in relation to the C6-C7 disc space. Central spinal canal stenosis. Effaced ventral, dorsal subarachnoid spaces. The greatest posterior extension of the disc gabriele. 3 mm. Normal signal intensity of the spinal cord. No evidence of intramedullary, epidural pathological process. ASSESSMENT/PLAN: 42 y/o male with PMHx of Multiple Sclerosis, presented to the ED with a 1 week hx of left-sided facial weakness and numbness, dysarthria and weakness of both knees. 1. Multiple sclerosis flare - Previous MS flares resolved spontaneously. - Brain MRI: 14 mm x 12 mm x 13 mm T2 FLAIR/T2 hyperintense lesion is noted in the left later mid carli/lower carli in the close proximity to the left middle cerebellar peduncle with peripheral ring enhancement - active demyelinating MS plaque. - Cervical spine MRI with contrast Noted above - IV solumedrol 250mg Q6H x 5 days - Neurology (Dr. Hough) consulted, appreciate recs, f/u outpatient to discuss immunomodulators - PT Eval 2. FEN - PO Fluids - Lytes WNL - Regular diet 3. PPx - DVT: Heparin 5000U BID. Dispo: D/C after completion of IV Solumederol for 5 days and clinical improvement Visit type - Emergency Visit Emergency Visit: Yes ED Registration Date: 02/24/18 Care time: The patient presented to the Emergency Department on the above date and was hospitalized for further evaluation of their emergent condition. - New Patient This patient is new to me today: No - Critical Care Critical Care patient: No
--- NOTE | 2018-02-27 15:54 | PN ---
Teaching Attending Note Name of Resident: Enid Begum ATTENDING PHYSICIAN STATEMENT I saw and evaluated the patient. I reviewed the resident's note and discussed the case with the resident. I agree with the resident's findings and plan as documented with exceptions below. SUBJECTIVE: Patient seen and examined. feeling better, weakness/numbness/gait improved. OBJECTIVE: Vital Signs Period Temp Pulse Resp BP Sys/Banks Pulse Ox Last 24 Hr 97.9 F-98.6 F 51-63 18-20 107-126/58-70 98-98 Intake & Output 02/24/18 02/25/18 02/26/18 02/27/18 23:59 23:59 23:59 23:59 Intake Total 900 300 300 Balance 900 300 300 Weight 169 lb 3.2 oz General: lying in bed in no acute distress Neuro:improved facial droop and left facial numbness, improved eyelid droop Active Medications Heparin Sodium (Porcine) (Heparin -) 5,000 unit SQ BID [facility] Last Admin: 02/27/18 09:14 Dose: Not Given Methylprednisolone Sodium Succinate (Solu-Medrol -) 250 mg IVPB Q6H-IV [facility] Stop: 03/02/18 02:59 Last Admin: 02/27/18 14:32 Dose: 250 mg Laboratory Results - last 24 hr 02/24/18 02/24/18 20:33 20:33 Neuromyelitis Optica Ab < 2 SREEDHAR Virus DNA (PCR) Negative ASSESSMENT AND PLAN: 42 yom with Multiple sclerosis, on avenox before, self discontinued 4 years ago, admitted with 1 week of facial droop, dysarthria, left facial numbness and gait instability -Acute Multiple Sclerosis Flare Plan: Neurology input noted. MRI results reviewed. 5 days of IV solumedrol, outpatient follow up PT eval based on needs and clinical improvement. Plan discussed with patient in detail, all questions answered.
[2018-02-28] MEDS: methylPREDNISolone NA SUCC 125 MG/2 ML VIAL IVPB SCH ×4 (02:40→20:51)
[2018-02-28] MEDS: HEPARIN NA (PORCINE) 5,000 UNITS/ML 1ML VIAL SQ SCH ×2 (09:20→21:36)
--- NOTE | 2018-02-28 12:06 | PN ---
Physical Exam: SUBJECTIVE: Patient seen and examined no acute events over night denies any fever, chilsl , N/V/D/C out of bed walking facial asymmetry is improving feeling better possible dc tomorrow after IV steroids completed OBJECTIVE: Vital Signs Period Temp Pulse Resp BP Sys/Banks Pulse Ox Last 24 Hr 97.6 F-98.5 F 49-65 18-18 124-137/61-83 98-99 GENERAL: The patient is awake, alert, and fully oriented, in no acute distress. HEAD: Normal with no signs of trauma. EYES: PERRL, extraocular movements intact, sclera anicteric, conjunctiva clear. No ptosis. ENT: Ears normal, nares patent, oropharynx clear without exudates, moist mucous membranes. NECK: Trachea midline, full range of motion, supple. LUNGS: Breath sounds equal, clear to auscultation bilaterally, no wheezes, no crackles, no accessory muscle use. HEART: Regular rate and rhythm, S1, S2 without murmur, rub or gallop. ABDOMEN: Soft, nontender, nondistended, normoactive bowel sounds, no guarding, no rebound, no hepatosplenomegaly, no masses. EXTREMITIES: 2+ pulses, warm, well-perfused, no edema. NEUROLOGICAL: Cranial nerves II through XII grossly intact. Normal speech, gait not observed. PSYCH: Normal mood, normal affect. SKIN: Warm, dry, normal turgor, no rashes or lesions noted Laboratory Results - last 24 hr 02/24/18 02/24/18 20:33 20:33 Neuromyelitis Optica Ab < 2 SREEDHAR Virus DNA (PCR) Negative Active Medications Generic Name Dose Route Start Last Admin Trade Name Freq PRN Reason Stop Dose Admin Heparin Sodium (Porcine) 5,000 unit 02/25/18 10:00 02/28/18 09:20 Heparin - SQ Not Given BID RAKEL Methylprednisolone Sodium Succinate 250 mg 02/25/18 03:00 02/28/18 09:15 Solu-Medrol - IVPB 03/02/18 02:59 250 mg Q6H-IV RAKEL Administration CBC, BMP 02/25/18 09:20 02/25/18 09:20 ASSESSMENT/PLAN:
--- NOTE | 2018-02-28 13:15 | PN ---
Teaching Attending Note Name of Resident: Ricky Hannah ATTENDING PHYSICIAN STATEMENT I saw and evaluated the patient. I reviewed the resident's note and discussed the case with the resident. I agree with the resident's findings and plan as documented with exceptions below. SUBJECTIVE: Patient seen and examined. continues to improve. OBJECTIVE: Vital Signs Period Temp Pulse Resp BP Sys/Bakns Pulse Ox Last 24 Hr 97.6 F-98.5 F 49-65 18-18 124-137/61-83 98-99 Intake & Output 02/25/18 02/26/18 02/27/18 02/28/18 23:59 23:59 23:59 23:59 Intake Total 044 938 6093 100 Balance 714 092 3990 100 General: lying in bed in no acute distress Neuro: improved facial droop, left eyelid droop and left facial numbness, improved ambulation Active Medications Heparin Sodium (Porcine) (Heparin -) 5,000 unit SQ BID [facility]AK[facility] Last Admin: 02/28/18 09:20 Dose: Not Given Methylprednisolone Sodium Succinate (Solu-Medrol -) 250 mg IVPB Q6H-IV [facility] Stop: 03/02/18 02:59 Last Admin: 02/28/18 09:15 Dose: 250 mg Laboratory Results - last 24 hr 02/24/18 02/24/18 20:33 20:33 Neuromyelitis Optica Ab < 2 SREEDHAR Virus DNA (PCR) Negative ASSESSMENT AND PLAN: 42 yom with Multiple sclerosis, on avenox before, self discontinued 4 years ago, admitted with 1 week of facial droop, dysarthria, left facial numbness and gait instability -Acute Multiple Sclerosis Flare Plan: Neurology input noted. MRI results reviewed. 5 days of IV solumedrol, outpatient follow up PLanfor d/c tomorrow after afternoon dose of solumedrol if no concerns. Plan discussed with patient in detail, all questions answered.
[2018-02-28] MEDS ORDERED: PT OWN MED DRAWER 7, Y5N ONE (20:04)
[2018-03-01] MEDS: methylPREDNISolone NA SUCC 125 MG/2 ML VIAL IVPB SCH ×3 (02:53→14:30)
[2018-03-01] MEDS ORDERED: PT OWN MED DRAWER 7, Y5N ONE (09:01)
[2018-03-01] MEDS: HEPARIN NA (PORCINE) 5,000 UNITS/ML 1ML VIAL SQ SCH (09:11)
--- NOTE | 2018-03-01 11:23 | DS ---
Physical Exam: SUBJECTIVE: Patient seen and examined, weakness/numbness speech continue to improve. has been ambulating with no concerns. OBJECTIVE: Vital Signs Period Temp Pulse Resp BP Sys/Banks Pulse Ox Last 24 Hr 97.6 F-98.4 F 50-105 18-18 123-138/61-93 PHYSICAL EXAM GENERAL: The patient is awake, alert, and fully oriented, in no acute distress. HEAD: Normal with no signs of trauma. EYES: PERRL, extraocular movements intact, sclera anicteric, conjunctiva clear, left eyelid lag ENT: Ears normal, nares patent, oropharynx clear without exudates, moist mucous membranes. NECK: Trachea midline, full range of motion, supple. LUNGS: Breath sounds equal, clear to auscultation bilaterally, no wheezes, no crackles, no accessory muscle use. HEART: Regular rate and rhythm, S1, S2 ABDOMEN: Soft, nontender, nondistended, normoactive bowel sounds, no guarding, no rebound, EXTREMITIES: 2+ pulses, warm, well-perfused, no edema. NEUROLOGICAL: AAOx3, right facial droop, left facial numbness, left eyelid droop , mild dysarthria (improved), power 5/5, sensation otherwise intact to light touch PSYCH: Normal mood, normal affect. SKIN: Warm, dry, normal turgor, no rashes or lesions noted. LABS Laboratory Tests 02/24/18 02/24/18 02/24/18 19:41 19:41 19:41 WBC 6.9 RBC 4.19 Hgb 13.5 Hct 40.1 MCV 95.6 MCH 32.2 MCHC 33.6 RDW 13.0 Plt Count 213 MPV 8.9 Absolute Neuts (auto) 4.7 Neutrophils % 69.0 Lymphocytes % 23.4 Monocytes % 5.2 Eosinophils % 1.6 Basophils % 0.8 Nucleated RBC % 0 ESR PT with INR 12.70 INR 1.12 Sodium Potassium Chloride Carbon Dioxide Anion Gap BUN Creatinine Creat Clearance w eGFR Random Glucose Calcium Phosphorus Magnesium Total Bilirubin AST ALT Alkaline Phosphatase Total Protein Albumin Vitamin B12 Vitamin D 25-Hydroxy Urine Color Yellow Urine Appearance Clear Urine pH 6.0 Ur Specific [place] 1.017 Urine Protein Negative Urine Glucose (UA) Negative Urine Ketones Negative Urine Blood Negative Urine Nitrite Negative Urine Bilirubin Negative Urine Urobilinogen 2.0 Ur Leukocyte Esterase Negative Neuromyelitis Optica Ab SREEDHAR Virus DNA (PCR) 02/24/18 02/24/18 02/24/18 19:41 20:33 20:33 WBC RBC Hgb Hct MCV MCH MCHC RDW Plt Count MPV Absolute Neuts (auto) Neutrophils % Lymphocytes % Monocytes % Eosinophils % Basophils % Nucleated RBC % ESR 5 PT with INR INR Sodium 143 Potassium 3.7 Chloride 107 Carbon Dioxide 28 Anion Gap 8 BUN 11 Creatinine 0.9 Creat Clearance w eGFR > 60 Random Glucose 85 Calcium 9.1 Phosphorus Magnesium Total Bilirubin 0.5 AST 24 D ALT 30 D Alkaline Phosphatase 61 Total Protein 6.8 Albumin 4.0 Vitamin B12 336 Vitamin D 25-Hydroxy Urine Color Urine Appearance Urine pH Ur Specific [place] Urine Protein Urine Glucose (UA) Urine Ketones Urine Blood Urine Nitrite Urine Bilirubin Urine Urobilinogen Ur Leukocyte Esterase Neuromyelitis Optica Ab SREEDHAR Virus DNA (PCR) 02/24/18 02/24/18 02/25/18 20:33 20:33 09:20 WBC RBC Hgb Hct MCV MCH MCHC RDW Plt Count MPV Absolute Neuts (auto) Neutrophils % Lymphocytes % Monocytes % Eosinophils % Basophils % Nucleated RBC % ESR PT with INR INR Sodium 140 Potassium 4.1 Chloride 107 Carbon Dioxide 23 Anion Gap 10 BUN 15 Creatinine 1.0 Creat Clearance w eGFR > 60 Random Glucose 155 H D Calcium 9.3 Phosphorus 3.6 Magnesium 1.8 Total Bilirubin AST ALT Alkaline Phosphatase Total Protein Albumin Vitamin B12 Vitamin D 25-Hydroxy 30.4 Urine Color Urine Appearance Urine pH Ur Specific [place] Urine Protein Urine Glucose (UA) Urine Ketones Urine Blood Urine Nitrite Urine Bilirubin Urine Urobilinogen Ur Leukocyte Esterase Neuromyelitis Optica Ab < 2 S[place]HAR Virus DNA (PCR) Negative 02/25/18 09:20 WBC 13.3 H RBC 4.50 Hgb 14.5 Hct 42.9 MCV 95.4 MCH 32.1 MCHC 33.7 RDW 13.1 Plt Count 205 MPV 8.7 Absolute Neuts (auto) Neutrophils % Lymphocytes % Monocytes % Eosinophils % Basophils % Nucleated RBC % ESR PT with INR INR Sodium Potassium Chloride Carbon Dioxide Anion Gap BUN Creatinine Creat Clearance w eGFR Random Glucose Calcium Phosphorus Magnesium Total Bilirubin AST ALT Alkaline Phosphatase Total Protein Albumin Vitamin B12 Vitamin D 25-Hydroxy Urine Color Urine Appearance Urine pH Ur Specific [place] Urine Protein Urine Glucose (UA) Urine Ketones Urine Blood Urine Nitrite Urine Bilirubin Urine Urobilinogen Ur Leukocyte Esterase Neuromyelitis Optica Ab SREEDHAR Virus DNA (PCR) MRI C SPINE C5-C6. Broad-based disc extrusion with mild cephalad extension of the disc material in relation to C5-C6 disc space. The disc effaces the ventral subarachnoid space. Effaced dorsal subarachnoid space. Central spinal canal stenosis is noted. The greatest posterior tension of the disc gabriele. 2 mm. C6-C7. Broad based extruded disc with mild cephalad extension of the disc material in relation to the C6-C7 disc space. Central spinal canal stenosis. Effaced ventral , dorsal subarachnoid spaces. The greatest posterior extension of the disc gabriele. 3 mm. Normal signal intensity of the spinal cord. No evidence of intramedullary , epidural pathological process. TO MY EYE, abnl signal cervicomedullary junction as well. MRI BRAIN Impression. Approximately 14 mm x 12 mm x 13 mm T2 FLAIR/T2 hyperintense lesion is noted in the left later mid carli/lower carli in the close proximity to the left middle cerebellar peduncle with peripheral ring enhancement - active demyelinating MS plaque. Multiple nonenhanced demyelinating supratentorial white matter lesions of the type seen in multiple sclerosis. HOSPITAL COURSE: Date of Admission:02/24/18 Date of Discharge: 03/01/18 Minutes to complete discharge: 35 Discharge Summary Reason For Visit: EXACERBATION OF MULTIPLE SCLEROSIS Current Active Problems Multiple sclerosis exacerbation (Acute) Hospital Course: Patient was admitted with facial weakness/numbness, dsyarthria, unsteady gait suggestive of Multiple sclerosis flare. He had MRI brain and C-spine results as above, that confirmed the same. He received 5 days of solumedrol 250 mg IV q6h per neurology recommendations. His symptoms markedly improved. He will be discharged with outpatient follow up with Dr. Hough this week to address further treatment plan for his multiple sclerosis. Condition: Good - Instructions Diet, Activity, Other Instructions: Call Dr. Hough's office tomorrow to schedule follow up in 1 week to discuss further plan. Avoid driving, operating heavy machinery till seen by your neurologist. Call 911 or come to ED if new weakness, or concerns noted. Referrals: Eugene Hough DO [Staff Physician] - 03/02/18 Disposition: HOME - Home Medications Comprehensive Discharge Medication List: Ambulatory Orders NK [No Known Home Medication] 03/01/18 This patient is new to me today: No Emergency Visit: Yes ED Registration Date: 02/24/18 Care time: The patient presented to the Emergency Department on the above date and was hospitalized for further evaluation of their emergent condition. Critical Care patient: No - Discharge Referral Referred to [facility] No
[2018-03-01 14:08] VITALS: BP 113/65; PULSE 56; TEMP 98.2
== END 2018-03-01 16:47 | disposition home or self-care (01) | DRG 60 ==
LOC: JER 19:02 → JERBED 20:32 → J5S 23:46
PROVIDERS: ADMIT Internal Medicine; ATTEND Hospitalist
DX: G35 Multiple sclerosis (principal); R20.0 Anesthesia of skin; R26.89 Other abnormalities of gait and mobility
CPT/HCPCS: 36415; 70552-TC; 72142-TC; 80048; 80053; 81003; 82306; 82607; 83520; 83735; 84100; 85025; 85027; 85610; 85651; 87086; 87798; 93005; 93010; 97116-GP; 97161-GP; 99283-25